=== PATIENT | female | born 1975 | race African-American/Black ===

== ENCOUNTER 2020-09-16 16:08 | Emergency (ER) | payer BC, SELFPAY ==
--- NOTE | ~2020-09-16 | XR_ITS ---
EXAMINATION: XR chest 2V 09/16/2020 17:07 INDICATION: Chest pain and left shoulder pain. Hypertension. PROCEDURE: 2 view chest COMPARISON: No prior studies for comparison. FINDINGS: The lungs are clear. The cardiomediastinal silhouette is within normal limits. There are no pleural effusions. There is no pneumothorax suspected. There are cholecystectomy clips in the up per abdomen. IMPRESSION: 1: NO ACUTE CARDIOPULMONARY DISEASE. Reviewed, dictated and finalized at location A. UNT MANAGEMENT ASSISTANT
--- NOTE | 2020-09-16 16:13 | ECG_ITS ---
Measurements Intervals [place] Rate: 92 P: 34 MI: 146 QRS: -17 QRSD: 94 T: 77 QT: 344 QTc: 427 Interpretive Statements SINUS RHYTHM WITH SINUS ARRHYTHMIA DELAYED PRECORDIAL R/S TRANSITION LEFT VENTRICULAR HYPERTROPHY WITH ST-T CHANGE BASELINE WANDER- I, II, III, AVF BORDERLINE ECG Electronically Signed On 09-16-2020 16:35:57 [employer]OM SHOP WORKER by Jaya Gaytan D.O.
[2020-09-16 16:29] LABS: Basophils Percent Auto 0.2 % (0.2-1.2); Eosinophils Absolute Auto 0.1 K/mm3 (0-0.3); Eosinophils Percent Auto 1.8 % (0-4.4); Hematocrit 39.1 % (37.0-47.0); Hemoglobin 13.3 g/dL (12.0-15.0); Lymphocytes Absolute Auto 2.54 K/mm3 (0.9-3.2); Lymphocytes Percent Auto 41.7 % (18.3-44.2); Mean Corpuscular Hemoglobin 30.5 pg (26-34); Mean Corpuscular Volume 89.7 fl (80-100); Mean Platelet Volume 11.2 fl (7.4-10.4); Monocytes Absolute Auto 0.5 K/mm3 (0.1-0.6); Monocytes Percent Auto 8.9 % (2.6-8.5); Neutrophils Absolute Auto 2.9 K/mm3 (1.3-6.7); Neutrophils Percent Auto 47.4 % (45.5-73.1); Platelet Count Result 275 k/mm3 (150-375); Red Blood Count 4.36 M/mm3 (4.2-5.4); Red Cell Distribution Width 12.9 % (11.5-14.5); White Blood Count 6.1 K/mm3 (4.5-10.0)
[2020-09-16 16:34] VITALS: BP 142/85; PULSE 85; RESP 26; TEMP 36.6; O2SAT 99
[2020-09-16 16:37] VITALS: PULSE 82
[2020-09-16] MEDS: ASPIRIN 81 MG CHEWABLE TABLET 324 MG PO (16:39)
[2020-09-16 16:40] LABS: Anion Gap 4 mmol/L (8-16); Blood Urea Nitrogen 13 mg/dL (7-17); Calcium 8.9 mg/dL (8.4-10.2); Carbon Dioxide 28 mmol/L (22-30); Chloride 105 mmol/L (98-107); Estimated CRCL calculation 90 ml/min; Estimated Glomerular Filt Rate > 60; Glucose 131 mg/dL (65-105); Potassium 3.4 mmol/L (3.4-5.0); Sodium 137 mmol/L (137-145)
[2020-09-16 16:52] LABS: Troponin I < 0.012 ng/mL (0.000-0.034)
[2020-09-16 17:05] LABS: INR 0.9; Prothrombin Time 12.5 Seconds (11.1-14.7)
[2020-09-16 17:07] LABS: Partial Thromboplastin Time 27.8 SECONDS (22.3-36.8)
--- NOTE | 2020-09-16 17:15 | ED.CHESTPAIN ---
HPI - Chest Pain General Chief Complaint: Chest Pain Stated Complaint: Chest Pain, Left Shoulder Pain Time Seen by Provider: 09/16/20 16:31 Source: patient Mode of arrival: ambulatory Limitations: no limitations History of Present Illness HPI narrative: 45-year-old female History of hypertension Got a Covid vaccine shot 2 weeks ago This morning she had some left arm soreness and a little chest discomfort before going to work lasted a few minutes and resolved spontaneously She works to [employer] in [employer] and had no problems while she was there After returning home and having a nap she decided to get checked out because she is due for her second shot in a week and want to make sure nothing was wrong She does not have a fever shortness of breath or cough, diaphoresis or palpitations, nausea or vomiting, urinary symptoms Related Data Home Medications Medication Instructions Recorded Confirmed amlodipine 5 mg PO 09/16/20 Allergies Allergy/AdvReac Type Severity Reaction Status Date / Time No Known Allergies Allergy Unverified 09/16/20 16:38 Review of Systems Review of Systems: All systems reviewed & are unremarkable except as noted in HPI and below Constitutional: Constitutional: Denies chills, Denies fatigue, Denies fever(s), Denies headache(s) and Denies weakness Eyes: Eyes: Reports no additional eye complaints and Denies change in vision ENT: Denies headache(s), Denies epistaxis, Denies nasal congestion and Denies sore throat Cardiovascular: Cardiovascular: Reports as per HPI, Reports chest pain, Denies leg edema, Denies palpitations and Denies dyspnea Respiratory: Respiratory: Denies cough, Denies dyspnea and Denies wheezing Gastrointestinal: Gastrointestinal: Denies abdominal pain, Denies diarrhea, Denies nausea and Denies vomiting Genitourinary: Genitourinary: Denies hematuria, Denies urinary frequency and Denies dysuria Musculoskeletal: Musculoskeletal: Reports myalgias, Denies deformity, Denies arthralgias, Denies joint swelling, Denies muscle weakness and Denies numbness Integumentary/Breasts: Skin/Breast: Denies rash and Denies wounds Neurologic: Denies headache(s), Denies focal weakness, Denies numbness and Denies weakness Psychiatric: Psychiatric: Reports no additional psychiatric complaints Endocrine: Endocrine: Denies fatigue and Denies palpitations Hematologic/Lymphatic: Hematologic/Lymphatic: Denies easy bleeding and Denies easy bruising Allergic/Immunologic: Allergic/Immunologic: Denies wheezing PMFSH Social History Social History Gender identity (if verbalized by the patient): Female Exam Const: General: no acute distress, well developed, alert and awake Nutritional Appearance: well nourished Orientation/consciousness: patient oriented x3 (alert) Limitations: no limitations HENMT: Head: normal to inspection, normocephalic and atraumatic Ears: external ears normal General nose exam: No nasal discharge present and no epistaxis Face and sinus: face symmetric Eyes: Conjunctivae: conjunctivae normal Sclera: sclerae normal EOM: EOMs intact bilaterally Neck: Neck: normal visual inspection, supple and no JVD Chest: Chest palpation & inspection: deferred and no tenderness Resp: Effort & Inspection: normal respiratory effort Auscultation: clear to auscultation bilaterally, no rales, no rhonchi, no wheezes and other (BS =) Cardio: Rate: regular rate Rhythm: regular rhythm Heart sounds: no gallops and no murmurs GI: Inspection: normal to inspection Back/Spine/Pelvis: Thoracic/Lumbar Spine: thoracic and lumbar spine normal to inspection Skin: General skin exam: normal color and no rashes or lesions noted Neuro: General: patient oriented x3 (alert) and moves all extremities Cranial nerves: Yes facial symmetry Speech: normal speech Extrem: General: normal to inspection and full ROM Other: No extremity tenderness Psych: Affect: normal affect Course Vital Signs
[2020-09-16 17:32] VITALS: BP 133/90; PULSE 84; RESP 18; O2SAT 100
[2020-09-16 18:49] VITALS: BP 159/93; PULSE 90; RESP 20; O2SAT 98
--- NOTE | 2020-09-16 19:46 | PC.NURSE ---
Assumed care of Pt. at this time. Report from MCKAY Meneses
[2020-09-16 19:49] LABS: Troponin I < 0.012 ng/mL (0.000-0.034)
[2020-09-16 20:47] VITALS: BP 148/85; PULSE 85; RESP 16; O2SAT 100
== END 2020-09-16 20:48 | disposition home or self-care (01) ==
PROVIDERS: Emergency Medicine; Emergency Provider Emergency Medicine
DX: R07.89 Other chest pain (principal); I51.7 Cardiomegaly
CPT/HCPCS: 36415; 71046; 80048; 84484; 85025; 85610; 85730; 93005; 99284; A9270

== ENCOUNTER 2023-02-22 16:25 | Emergency (ER) | payer BC, SELFPAY ==
[2023-02-22 16:33] VITALS: BP 147/79; PULSE 80; RESP 20; TEMP 36.5; O2SAT 100
--- NOTE | 2023-02-22 17:32 | ED.NEUROSD ---
HPI - Neuro Symptoms/Deficit General Chief Complaint: Neuro Symptoms/Deficit Stated Complaint: numbness in hands Time Seen by Provider: 02/22/23 16:58 Source: patient Mode of arrival: ambulatory Limitations: no limitations History of Present Illness HPI Narrative: Patient is a 47-year-old female who presents to the ED with report of paresthesias to her bilateral hands. Patient reports having intermittent paresthesias in her bilateral hands and fingers for the last several months. She states the symptoms occur randomly, often when she wakes up in the morning. She woke up this morning with paresthesias in both of her hands, but states the right hand has persisted mostly throughout the day, though is still intermittent. She describes the paresthesias as tingling and that her fingers feel tight. She does report having occasional pain in her elbow and fingers. She states she feels like she has to flick her hands to get rid of the paresthesias. Denies numbness. Denies any recent injury. Denies any weakness of her hands or dropping things. Denies weakness of arms or legs, headache, dizziness, lightheadedness, numbness elsewhere, blurry vision, slurred speech, dysarthria, dysphagia. Denies neck or back pain. Related Data Home Medications Medication Instructions Recorded Confirmed amlodipine 5 mg tablet 5 mg PO 09/16/20 Allergies Allergy/AdvReac Type Severity Reaction Status Date / Time No Known Allergies Allergy Unverified 09/16/20 16:38 Review of Systems Review of Systems: CONSTITUTIONAL: Denies fever, chills, or sweats. EYES: Denies visual changes. CARDIOVASCULAR: Denies chest pain. RESPIRATORY: Denies dyspnea. GASTROINTESTINAL: Denies abdominal pain, nausea, vomiting. MUSCULOSKELETAL: See HPI. NEUROLOGIC: See HPI. All systems reviewed & are unremarkable except as noted in HPI and below [facility] Past Medical History Medical History (Updated 02/23/23 @ 00:00 by Background Daemon) HTN (hypertension) Social History Social History Gender identity (if verbalized by the patient): Female Exam Narrative: GENERAL: Well appearing, obese with BMI of 33.6, non-toxic, in no acute distress. HEAD: Normocephalic, atraumatic. NECK: Supple. No adenopathy, no masses. RESPIRATORY: Airway patent, respirations nonlabored. Clear to auscultation bilaterally, no rales, rhonchi, wheezing. CARDIOVASCULAR: Regular rate and rhythm without murmurs, rubs, or gallops. Radial pulses 2+ and equal bilaterally. MUSCULOSKELETAL: Moves all extremities. Strength/ROM intact without gross deformities. Full range of motion of bilateral hands and fingers. Sharp touch and dull sensation intact to all fingers and hands. Good capillary refill to all fingers. No significant worsening of paresthesias with Tinel's or carpal compression testing. No significant tenderness to fingers, wrist, elbow. SKIN: Warm, dry, normal color. No rashes. NEURO: A&O X3. Speech clear. Cranial nerves II-XII grossly intact. Steady gait. No ataxic movements. Equal miller helper strength bilaterally. Strength 5 out of 5 in upper and lower extremities bilaterally. No focal neurologic deficits. PSYCHIATRIC: Appropriate mood and affect. Normal interaction. Course Vital Signs Vital signs: Vital Signs Temperature 97.7 F 02/22/23 16:33 Pulse Rate 80 02/22/23 16:33 Respiratory Rate 20 02/22/23 16:33 Blood Pressure 147/79 H 02/22/23 16:33 Pulse Oximetry 100 02/22/23 16:33 Oxygen Delivery Room Air 02/22/23 16:33 Temperature 97.7 F 02/22/23 16:33 Pulse Rate 80 02/22/23 16:33 Respiratory Rate 20 02/22/23 16:33 Blood Pressure 147/79 H 02/22/23 16:33 Pulse Oximetry 100 02/22/23 16:33 Oxygen Delivery Room Air 02/22/23 16:33 MDM - Neuro Symptoms/Deficit MDM Narrative Medical decision making narrative: Patient presented to ED with several month history of tingling paresthesias to bilateral hands. Vital stable upon arrival. Exam un
== END 2023-02-22 17:47 | disposition home or self-care (01) ==
PROVIDERS: Emergency Provider Physician Assistant; PCP Family Medicine
DX: R20.2 Paresthesia of skin (principal); I10 Essential (primary) hypertension
CPT/HCPCS: 99283

== ENCOUNTER 2023-09-28 09:12 | Outpatient (CLI) | payer BC, SELFPAY ==
--- NOTE | ~2023-09-28 | MM_ITS ---
EXAMINATION: MM screening kait BI w kimo HISTORY: Screening mammogram TECHNIQUE: Craniocaudal and mediolateral oblique 3-D tomosynthesis images were obtained and synthetic 2-D images were generated. CAD analysis was submitted and interpreted. COMPARISON: No prior mammogram is available for comparison at this institution. BREAST PARENCHYMAL COMPOSITION: There are scattered areas of fibroglandular density. FINDINGS: No suspicious mass, calcification, or architectural distortion are identified in either richi ast to suggest malignancy. IMPRESSION: 1. No mammographic evidence of malignancy. 2. Recommend routine screening mammography in one year. BI-RADS Category 1: Negative Reviewed, dictated and finalized at location A. EMS MGR
== END 2023-09-28 09:13 | disposition home or self-care (01) ==
PROVIDERS: PCP Family Medicine; Visit Provider Obstetrics & Gynecology
DX: Z12.31 Encounter for screening mammogram for malignant neoplasm of breast (principal)
CPT/HCPCS: 77063; 77067

== ENCOUNTER 2023-12-28 14:03 | Emergency (ER) | payer BC, SELFPAY ==
[2023-12-28] VITALS (18 sets, daily range): BP systolic 131–145; BP diastolic 85–94; PULSE 73–100; RESP 13–27; TEMP 36.3–37.1; O2SAT 96–100
--- NOTE | ~2023-12-28 | US_ITS ---
EXAMINATION: US pelvic limited DATE: 12/28/2023 18:08 INDICATION: Ovarian lesion. TECHNIQUE: Multiple transabdominal and endovaginal sonographic images of the pelvis were obtained. COMPARISON: CT abdomen and pelvis, same date. FINDINGS: Uterus: Surgically absent. Right Ovary: 2.1 x 1.1 x 1.5 cm. Vascular flow is present. 8 mm dominant follicle or simple cyst. Left Ovary: 5.4 x 1.7 x 2.5 cm. Vascular flow is present. Smoothly marginated, 2.1 cm solid ovarian l esion with moderate to strong color Doppler flow. There is no free fluid in the pelvis. IMPRESSION: 2.1 cm solid left ovarian lesion (O-RADS 4), recommend pelvic MRI and referral to gynecology/gynecolo gy-oncology. Reviewed, dictated and finalized at location K. IMPRESSION: 2.1 cm solid left ovarian lesion (O-RADS 4), recommend pelvic MRI and referral to gynecology/gynecology-oncology.
--- NOTE | ~2023-12-28 | CT_ITS ---
EXAMINATION: CT abdomen pelvis wo con DATE: 12/28/2023 16:07 INDICATION: left flank pain TECHNIQUE: Computed tomography (CT) of the abdomen and pelvis was performed without intravenous contr ast. Automated exposure control and iterative reconstruction technique were employed. The dose-length product was 853.46 mGy-cm. COMPARISON: None. FINDINGS: Lower thorax: Minimal dependent atelectasis on the left. Liver: Normal. Biliary/Gallbladder: Gallbladder is absent. No bile duct dilation. Pancreas: No mass or duct dilation. Spleen: Normal. Adrenals: Subcentimeter left adrenal hypodensity, likely adenoma. Kidneys: No suspicious mass, obstructing stone, or hydronephrosis. GI tract: No small or large bowel dilation. Normal appendix. Diverticulosis without diverticulitis. Mesentery/Peritoneum: No ascites, mass, or free air. Retroperitoneum: No mass. Pelvis: Normal urinary bladder. Indeterminate density 2.8 cm left ovarian lesion. Simple right ovaria n cyst. Small volume free pelvic fluid. Soft Tissues: Soft tissues and body wall unremarkable. Bones: No acute osseous finding. 4.6 cm cystic lesion in the proximal left femur, without aggressive features. An osseous tract approach the lesion possibly from prior hardware or biopsy. Bilateral sac roiliitis. IMPRESSION: Indeterminate 2.8 cm left ovarian lesion, recommend pelvic ultrasound, now if current symptoms refer to the pelvis, otherwise timely outpatient evaluation would be sufficient. No twisting of the vascula r pedicle to suggest ovarian torsion in either ovary. Nonaggressive appearing cystic proximal femoral lesion with a likely hardware or biopsy tract, correl ate with prior history. No CT evidence of nephrolithiasis or obstructive uropathy. Reviewed, dictated and finalized at location K. IMPRESSION: Indeterminate 2.8 cm left ovarian lesion, recommend pelvic ultrasound, now if c urrent symptoms refer to the pelvis, otherwise timely outpatient evaluation wou ld be sufficient. No twisting of the vascular pedicle to suggest ovarian torsio n in either ovary. Nonaggressive appearing cystic proximal femoral lesion with a likely hardware o r biopsy tract, correlate with prior history. No CT evidence of nephrolithiasis or obstructive uropathy.
[2023-12-28 16:24] LABS: Basophils Percent Auto 0.1 % (0.2-1.2); Hematocrit 41.7 % (37.0-47.0); Hemoglobin 14.2 g/dL (12.0-15.0); Immature Granulocyte Absolute 0.01 K/mm3 (0.00-0.031); Immature Granulocyte Percent A 0.1 % (0-0.5); Lymphocytes Absolute Auto 1.57 K/mm3 (0.9-3.2); Lymphocytes Percent Auto 22.9 % (18.3-44.2); Mean Corpuscular HGB Conc 34.1 g/dl (32-36); Mean Corpuscular Hemoglobin 30.6 pg (26-34); Mean Corpuscular Volume 89.9 fl (80-100); Mean Platelet Volume 10.9 fl (7.4-10.4); Monocytes Absolute Auto 0.3 K/mm3 (0.1-0.6); Monocytes Percent Auto 3.9 % (2.6-8.5); Platelet Count Result 259 k/mm3 (150-375); Red Blood Count 4.64 M/mm3 (4.2-5.4); Red Cell Distribution Width 12.8 % (11.5-14.5); White Blood Count 6.9 K/mm3 (4.5-10.0)
[2023-12-28 16:29] LABS: Appearance Urine Clear (Clear); Bilirubin Urine Negative (Negative); Blood Urine Negative (Negative); Color Urine Yellow (Yellow); Glucose Urine UA Negative (Negative); Ketones Urine Negative (Negative); Leukocyte Esterase Ur Negative LEU/UL (Negative); Nitrate Urine Negative (Negative); Protein Urine Negative (Negative); Specific Grav Ur 1.013 (1.001-1.035); pH Urine 7.5 (5.0-9.0)
[2023-12-28 16:33] LABS: Add Urine Microscopic? YES
[2023-12-28 16:36] LABS: Alanine Aminotransferase 21 U/L (6-35); Albumin Level 4.6 g/dL (3.5-5.1); Alkaline Phosphatase 59 U/L (38-126); Anion Gap 8 mmol/L (4-12); Aspartate Amino Transferase 23 U/L (14-36); Bilirubin,Total 0.5 mg/dL (0.2-1.3); Blood Urea Nitrogen 8 mg/dL (7-17); Calcium 9.3 mg/dL (8.4-10.2); Carbon Dioxide 26 mmol/L (22-30); Chloride 103 mmol/L (98-107); Estimated CRCL calculation 113 ml/min; Estimated Glomerular Filt Rate > 60; Glucose 125 mg/dL (65-110); Lipase 24 U/L (23-300); Potassium 3.4 mmol/L (3.4-5.0); Sodium 137 mmol/L (137-145)
--- NOTE | 2023-12-28 18:01 | ED.GENADULT ---
HPI - General Adult General Chief complaint: Back Pain/Injury Stated complaint: L side pain Time Seen by Provider: 12/28/23 15:50 History of Present Illness HPI narrative: patient is a 48-year-old female who presents emergency department with chief complaint of left flank pain patient reports that started having pain after urinating reports that the pain began around 1 patient states she took some Tylenol but reports that the pain has been slowly getting better. The patient reports some slight nausea denies fever denies dysuria. The patient reports no prior history of kidney stones reports prior history of a hysterectomy but does report that she believes that she has her ovaries. Related Data Home Medications Medication Instructions Recorded Confirmed amlodipine 5 mg tablet 5 mg PO 09/16/20 06/24/23 Allergies Allergy/AdvReac Type Severity Reaction Status Date / Time No Known Allergies Allergy Unverified 06/24/23 10:56 Review of Systems Review of Systems: A 10 system review of systems was completed on the patient and is negative except for what is stated in the HPI. Nursing and ancillary documentation was reviewed. PMFSH Past Medical History Medical History HTN (hypertension) Surgical History Surgical History H/O: hysterectomy 2018 Family History Family History Other Cervical cancer Diabetes mellitus Hypertension Malignant neoplasm of prostate Social History Social History Smoking status: Current some day smoker Tobacco type: e-cigarettes/vaping Alcohol intake: current Substance use: current Substance use type: marijuana Lack of Transportation: No Lack of Food: Never True Current Housing: I Have Housing Concerned About Future Housing: No Difficulty Paying Gas/Electric Bills: No Difficulty Paying for Meds: No Currently Unemployed: No Education: Trade/Vocational Certificate Difficulty w/ Childcare or Family Care: No Living arrangements: with family Occupation/Education: occupation Gender identity (if verbalized by the patient): Female Sexual Orientation (if Verbalized by the Patient): Straight or Heterosexual Exam Narrative: GENERAL: Well-appearing, well-nourished, and in no acute distress. HEAD: Normocephalic, atraumatic. EYES: PERRLA and EOMI. ENT: Nares clear, no rhinorrhea or epistaxis. Mucous membranes moist. NECK: Supple. CHEST: Clear to auscultation. No respiratory distress. HEART: Regular rate and rhythm. No murmur heard. Normal peripheral pulses. ABDOMEN: Soft, nontender, nondistended, normal active bowel sounds. EXTREMITIES: Normal range of motion. No edema. SKIN: Warm, dry, no rash. NEURO: No focal deficits. Alert and oriented x3. PSYCH: Normal mood and affect. Course Vital Signs Vital signs: Vital Signs Temperature 36.3 C L 12/28/23 14:08 Pulse Rate 100 12/28/23 14:08 Respiratory Rate 20 12/28/23 14:08 Blood Pressure 143/91 H 12/28/23 14:08 Pulse Oximetry 100 12/28/23 14:08 Temperature 37.1 C 12/28/23 15:43 Pulse Rate 81 12/28/23 18:04 Respiratory Rate 15 12/28/23 18:04 Blood Pressure 142/85 H 12/28/23 18:04 Pulse Oximetry 99 12/28/23 18:04 Oxygen Delivery Room Air 12/28/23 15:43 Medical Decision Making MDM Narrative Medical decision making narrative: differential diagnosis includes ureterolithiasis, UTI, pyelonephritis, ovarian pathology, ovarian torsion, diverticulitis, colitis laboratory studies were obtained on the patient which showed a normal CBC CMP was within normal limits urinalysis showed no evidence UTI ultrasound of the pelvis showed 2.1 cm solid left ovarian lesion (O-RADS 4), recommend pelvic MRI and refe
[2023-12-28] MEDS: KETOROLAC 30 MG/ML VIAL (*BKC) IM (18:20)
== END 2023-12-28 19:43 | disposition home or self-care (01) ==
PROVIDERS: Emergency Provider Emergency Medicine; PCP Family Medicine
DX: N83.8 Other noninflammatory disorders of ovary, fallopian tube and broad ligament (principal); R10.9 Unspecified abdominal pain; I10 Essential (primary) hypertension; F17.290 Nicotine dependence, other tobacco product, uncomplicated
CPT/HCPCS: 36415; 74176; 76857; 80053; 81001; 83690; 85025; 96372; 99284; J1885

== ENCOUNTER 2024-02-29 11:48 | Outpatient (CLI) | payer BC, SELFPAY ==
--- NOTE | ~2024-02-29 | US_ITS ---
US pelvic complete w TV Ordering provider: Alexandar Tate MD History: . N83.292 - Other ovarian cyst, left side . Comparison: None. Technique: Transabdominal and endovaginal ultrasound of the pelvis (Doppler ultrasound interrogation techniques used as needed for this exam.) FINDINGS: UTERUS surgically removed.. CUL DE SAC: No free fluid. RIGHT OVARY: Not visualized. LEFT OVARY: Not visualized. ADNEXA: Small cystic area seen in the left adnexa which may be ovarian. Follow-up advised. IMPRESSION: Small cystic area seen in the left adnexa which may be ovarian. Follow-up advised Reviewed, dictated and finalized at location A. IMPRESSION: Small cystic area seen in the left adnexa which may be ovarian. Follow-up advis ed
== END 2024-02-29 11:49 ==
PROVIDERS: PCP Family Medicine; Visit Provider Obstetrics & Gynecology
DX: N83.292 Other ovarian cyst, left side (principal)
CPT/HCPCS: 76830; 76856

== ENCOUNTER 2025-05-16 11:03 | Outpatient (CLI) | payer BC, SELFPAY ==
--- NOTE | ~2025-05-16 | MM_ITS ---
EXAMINATION: MM screening kait BI w kimo HISTORY: Screening TECHNIQUE: Craniocaudal and mediolateral oblique 3-D tomosynthesis images were obtained and synthetic 2-D images were generated. CAD analysis was submitted and interpreted. COMPARISON: 09/28/2023 BREAST PARENCHYMAL COMPOSITION: Not Dense: The breasts are almost entirely fatty. FINDINGS: There is no evidence of suspicious mass, calcification, or architectural distortion to suggest malignancy in either breast. There has been no suspicious interval change. IMPRESSION: 1. No mammographic evidence of malignancy. 2. Recommend routine screening mammography in one year. BI-RADS Category 1: Negative Reviewed, dictated and finalized at location B.
--- OUTSIDE RECORDS SUMMARY | 2025-05-16 11:57 | XMS_ITS | Clinical Summary ---
Author Organization [facility] Address [address] [place] [address] Care Team Providers Care Ticket Printer Name Role Phone Gaurav Navarrete APRN-[facility] Primary Care P scottder Source Comments [facility],non-owned Affiliates and Associated Physician Practices is amultiple site organization consisting of ambulatory clinics and hospital sitesin [place], [place], [place] and [place]. This disclosure is being madepursuant to the Care Everywhere program and may not contain all information available regarding this patient. Last updated 18.[facility] Allergies No known active allergies Medications * Be aware that medications may not be up to date on this document. Alwaysverify current medications with the patient. ibuprofen (MOTRIN) 800 MG tablet TK 1 T PO Q 6 H FOR CRAMPS 1 04/29/2018 Active calcium carbonate-vitami n D 600-400 MG-UNIT tablet TK 1 C PO BID 11 04/27/2018 Active acyclovir (ZOVIRAX) 800 MG tablet TK 1 T PO QD 4 05/23/2018 Active lisinopril-hydro CHLOROthiazide (PRINZIDE; ZESTORETIC) 20-12.5 MG tablet Take 1 tablet by mouth once daily 6 09/21/2018 Active amLODIPine (Norvasc) 10 MG tablet 12/27/2023 Active vitamin D, ergocalciferol, (Drisdol) 1.25 MG (48785 UT) capsule 10/04/2023 Active gabapentin (Neurontin) 300 MG capsule 12/31/2023 Active losartan (Cozaar) 25 MG tablet 12/27/2023 Active Active Problems Problem Noted Date Diagnosed Date 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 Family History Medical History Relation Name Comments Cancer - Prostate Father Cancer - Other Mother cervix Relation Name Status Comments Father Mother Social History Tobacco Use Types Packs/Day Years Used Date Smoking Tobacco: Never Smokeless Tobacco: Never Tobacco Cessation:Counseling Given: Not Answered Alcohol Use Standard Drinks/Week Comments Yes 0 (1 standard drink = 0.6 oz pur e alcohol) occ Comments No Sex and Gender Information Value Date Recorded Sex Assigned at Not on file Legal Sex Female 9:12 AM CDT Gender Identity Not on file Sexual Orientation Not on file Last Filed Vital Signs Vital Sign Reading Time Taken Comments Blood Pressure 138/92 02/08/2024 2:12 PM CDT Pulse 62 03/08/2019 11:50 AM CDT Temperature 36.9 C (98.5 F) 02/23/2019 1:08 PM CDT Respiratory Rate 17 03/08/2019 11:50 AM CDT Oxygen Saturation 96% 03/08/2019 11:50 AM CDT Inhaled Oxygen Concentration - - Weight 91.4 kg (201 lb 6.4 oz) 02/08/2024 2:12 P M CDT Height 167.6 cm (5' 6) 02/08/2024 2:12 PM CDT Body Mass Index 32.51 02/08/2024 2:12 PM CDT Plan of Treatment Health Maintenance Due Date Last Done Comments COLOGUARD (AGES 45-75) - COLON CA SCREENING 1973 COLON MONITORING 1973 COLONOSCOPY - COLON CA SCREENING 1973 CT COLONOGRAPHY - COLON CA SCREENING 1973 Colorectal Cancer Screening 1973 FIT - COLON CA SCREENING 1973 FLEX SIG - COLON CA SCREENING 1973 MAMMOGRAM 1973 HIV SCREENING 1988 HEPATITIS C SCREENING 03/20/1991 DTAP/TDAP/TD VACCINES (1 - Tdap) 1992 HEPATITIS B VACCINE (1 of 3 - 19+ 3-dose series) 1992 PAP with HPV 2003 PNEUMOCOCCAL VACCINE 50+ (1 of 1 - PCV) 2023 ZOSTER VACCINE (1 of 2) 2023 SCREENING FOR DIABETES 01/13/2024 9, 08/25/2018, 08/11/2018, Additional history exists DEPRESSION SCREENING 08/16/2024 COVID-19 VACCINE ( season) 2025 10/07/2021, 09/20/2020, 08/30/2020 INFLUENZA VACCINE (#1) 2025 06/05/2015, 2007 LIPID TESTING 08/05/2027 08/05/2022 HIB VACCINE Aged Out No longer eligi ble based on patient's age to complete this topic HPV VACCINE Aged Out No longer eligi ble based on patient's age to complete this topic MENINGOCOCCAL (Group B) VACCINE SHARED DECISION-MAKING Aged Out No longer eligible based on patient's age to complete this topic MENINGOCOCCAL GROUPS A/C/Y/W VACCINE Aged Out No longer eligible based on patient's age to complete this topic Procedures Procedure Name Priority Date/Time Associated Diagnosis Comments COMPREHENSIVE METABOLIC PANEL Routine 09/08/2018 10:43 AM [facility] Gestational trophoblastic neoplasm from Last 3 Months or Most Recently Relevant to Health Maintenance Results * COMPREHENSIVE METABOLIC PANEL (09/08/2018 10:43 AM [facility]) Glucose 102 74 - 106 mg/dL 09/08/2018 11:[address] [facility] Sodium 138 136 - 145 mmol/L 09/08/2018 11:[address] [facility] Potassium 3.5 3.5 - 5.1 mmol/L 09/08/2018 11:[address] [facility] Chloride 105 98 - 107 mmol/L 09/08/2018 11:[address] [facility] CO2 25 22 - 31 mmol/L 09/08/2018 11:[address] [facility] Calcium 8.6 8.5 - 10.1 mg/dL 09/08/2018 11:[address] [facility] Anion Gap 8 8 - 16 mmol/L 09/08/2018 11:[address] [facility] BUN 9 7 - 21 mg/dL 09/08/2018 11:32 AM [facility] Creatinine 0.85 0.50 - 1.30 mg/dL 09/08/2018 11:[address] [facility] Alkaline Phosphatase 58 38 - 126 U/L 09/08/2018 11:32 AM [facility] ALT 35 13 - 61 U/L 09/08/2018 11:32 AM [facility] AST 14 5 - 40 U/L 09/08/2018 11:[address] [facility] Protein Total 7.5 6.4 - 8.2 gm/dL 09/08/2018 11:32 AM [facility] Albumin 3.6 3.4 - 5.0 gm/dL 09/08/2018 11:[address] [facility] Bilirubin Total 0.4 0.2 - 1.0 mg/dL 09/08/2018 11:[address] [facility] eGFR by MDRD >60 >60 mL/min/1.7 3m2 09/08/2018 11:32 AM [facility] eGFR by MDRD >60 >60 mL/min/1.7 3m2 09/08/2018 11:[address] [facility] Blood BLOOD SPECIMEN / Unknown Venipuncture / Unknown 09/08/2018 10:43 AM [facility] 09/08/2018 10:58 AM [facility] Paty Salmon MD LAB - CHEMISTRY ORDERABLES Final Result Performing Organization Address [facility]/State/[facility] de Phone Number [facility] [address] [place] [address] from Last 3 Months or Most Recently Relevant to Health Maintenance Insurance Care Teams Ticket Printer Relationship Specialty Start Date End Date Gaurav Navarrete, CORPORATE MEETING PLANNER-USER EXPERIENCE ANALYST [address] [place] [address] PCP - General Nurse Practitioner Adult Health 01/13/24
--- OUTSIDE RECORDS SUMMARY | 2025-05-16 11:57 | XMS_ITS | Encounter Summary ---
Author Organization [facility] Address [address] [place] [address] Care Team Providers Care Camp Dishwasher Name Role Phone Remy Evans MD Primary Care Provider [phone] Gaurav Navarrete [facility] Primary Care P rovider Encounter Details Date Type Department Care Team (Late st Contact Info) Description 02/22/2019 Telephone [facility] [address] [place] [address] Soham Bliss Social History Tobacco Use Types Packs/Day Years Used Date Smoking Tobacco: Never Smokeless Tobacco: Never Alcohol Use Standard Drinks/Week Comments Yes 0 (1 standard drink = 0.6 oz pur e alcohol) occ Comments No Sex and Gender Information Value Date Recorded Sex Assigned at Not on file Legal Sex Female 9:12 AM CDT Gender Identity Not on file Sexual Orientation Not on file documented as of this encounter Plan of Treatment Not on file documented as of this encounter Visit Diagnoses Not on filedocumented in this encounter Care Teams Camp Dishwasher Relationship Specialty Start Date End Date Remy Evans MD [address] [facility] [address] [place] [address] PCP - General 10/10/18 5/29/24 Gaurav Navarrete, REBAR FABRICATOR-DIE STAMPING PRESS OPERATOR [address] [place] [phone] PCP - General Nurse Practitioner Adult Health 01/13/24 documented as of this encounter
== END 2025-05-16 11:04 | disposition home or self-care (01) ==
LOC: ANHFOHIMG 11:14
PROVIDERS: PCP Family Medicine; Visit Provider Obstetrics & Gynecology
DX: Z12.31 Encounter for screening mammogram for malignant neoplasm of breast (principal)
CPT/HCPCS: 77063; 77067

== ENCOUNTER 2025-06-21 00:28 | Day surgery (SDC) | payer BC, SELFPAY ==
[2025-06-07 13:50] VITALS: BMI 33.6
[2025-06-21 09:07] VITALS: BP 135/85; PULSE 70; RESP 16; TEMP 35.9; O2SAT 99
[2025-06-21] MEDS: LACTATED RINGERS 1,000 ML 150 ML IV CONT (09:12)
--- NOTE | 2025-06-21 09:15 | WPDANESEPPF ---
Anes - Initial Pre Proc Eval Procedure: Operation Date: 06/21/25 10:30 Proposed Procedures p Screening Colonoscopy - Zuhair Alejo MD Date/Time: 06/21/25 09:15 Surgeon: Zuhair Alejo MD Pre Op Diagnosis: Screening Patient Data Age: 50 Gender: F Height: 1.68 m Weight: 91.3 kg Last Vital Signs Temp 35.9 C L 06/21/25 09:07 Pulse 70 06/21/25 09:07 Resp 16 06/21/25 09:07 BP 135/85 06/21/25 09:07 Pulse Ox 99 06/21/25 09:07 O2 Del Method Room Air 06/21/25 09:07 Allergies Allergy/AdvReac Type Severity Reaction Status Date / Time No Known Allergies Allergy Verified 06/21/25 09:06 Home Medications ?Medication ?Instructions ?Recorded ?Confirmed ?Type amlodipine 10 mg tablet mg PO DAILY 02/16/24 02/16/24 History losartan 25 mg tablet mg PO DAILY 02/16/24 02/16/24 History Patient hx anesthesia problems: none Family hx anesthesia problems: none Results Review: All pre-operative results and documents have been reviewed as part of the pre-operative evaluation. [facility] Past Medical History Medical History HTN (hypertension) Surgical History Surgical History H/O: hysterectomy 2018 Family History Family History Other Cervical cancer Diabetes mellitus Hypertension Malignant neoplasm of prostate Social History Social History Smoking status: Never smoker Tobacco type: e-cigarettes/vaping Alcohol intake: current Drinks per week: 1 Alcohol use details: occ. Substance use: never Substance use type: does not use Lack of Transportation: No Lack of Food: Never True Current Housing: I Have Housing Concerned About Future Housing: No Difficulty Paying Gas/Electric Bills: No Difficulty Paying for Meds: No Currently Unemployed: No Education: Trade/Vocational Certificate Difficulty w/ Childcare or Family Care: No Living arrangements: with family Occupation/Education: occupation Gender identity (if verbalized by the patient): Female Sexual Orientation (if Verbalized by the Patient): Straight or Heterosexual Spiritual care concerns: No Anes - Eval Final PreProcedure Day of Procedure 06/21/25 09:15 Patient weight: obese Heart: regular rate and rhythm Lungs: clear to auscultation Airway: Mallampati scale class II Neurological: alert and oriented Last oral intake: >/= 8 hours ASA classification: III Emergent: no Anesthetic plan: proceed Anesthesia type and monitoring: general GIVS and standard monitoring Results Review: All pre-operative results and documents have been reviewed as part of the pre-operative evaluation. Informed Consent: The patient's anesthetic plan and its attendant risks and benefits were discussed with the patient/family/POA. Questions were solicited and answers provided to the satisfaction of the patient/family/POA.
--- NOTE | 2025-06-21 09:28 | PM.HPGS ---
History of Present Illness History of Present Illness Consent: Risks, benefits, and alternatives have been discussed and questions answered. Patient agrees to proceed with procedure. Chief complaint: Screening Narrative: Darcie Ruvalcaba is a 50 year old female here for screening colonoscopy Review of Systems Review of Systems: All systems reviewed & are unremarkable except as noted in HPI and below PMFSH Past Medical History Medical History (Updated 06/21/25 @ 09:29 by Zuhair Alejo MD) Colon cancer screening HTN (hypertension) Surgical History Surgical History H/O: hysterectomy 2018 Family History Family History Other Cervical cancer Diabetes mellitus Hypertension Malignant neoplasm of prostate Social History Social History Smoking status: Never smoker Tobacco type: e-cigarettes/vaping Alcohol intake: current Drinks per week: 1 Alcohol use details: occ. Substance use: never Substance use type: does not use Lack of Transportation: No Lack of Food: Never True Current Housing: I Have Housing Concerned About Future Housing: No Difficulty Paying Gas/Electric Bills: No Difficulty Paying for Meds: No Currently Unemployed: No Education: Trade/Vocational Certificate Difficulty w/ Childcare or Family Care: No Living arrangements: with family Occupation/Education: occupation Gender identity (if verbalized by the patient): Female Sexual Orientation (if Verbalized by the Patient): Straight or Heterosexual Spiritual care concerns: No Meds Home Medications and Allergies Home Medications ?Medication ?Instructions ?Recorded ?Confirmed ?Type amlodipine 10 mg tablet mg PO DAILY 02/16/24 02/16/24 History losartan 25 mg tablet mg PO DAILY 02/16/24 02/16/24 History Allergies Allergy/AdvReac Type Severity Reaction Status Date / Time No Known Allergies Allergy Verified 06/21/25 09:06 Vital Signs Vital Signs - 24 hr 06/21/25 09:07 Temperature 96.7 F L Pulse Rate 70 Respiratory Rate 16 Blood Pressure 135/85 Pulse Oximetry 99 Oxygen Delivery Room Air Exam Const: General: comfortable and no acute distress HENMT: Face/Nose/Sinus: Normal nares present Eyes: General: appearance normal, both eyes and all related structures Resp: Auscultation: clear to auscultation bilaterally Cardio: Rate: regular rate Rhythm: regular rhythm GI: Inspection: non-distended GI Palp: Yes Soft to palpation Skin: General skin exam: normal color Extrem: General: normal to inspection Psych: Mental Status: mental status grossly normal Assessment and Plan Assessment and plan (1) Colon cancer screening: Code(s): Z12.11 - Encounter for screening for malignant neoplasm of colon Status: Acute Assessment and Plan: colonoscopy
[2025-06-21 09:42] VITALS: BP 110/74; PULSE 56; RESP 14; O2SAT 99
[2025-06-21 09:52] VITALS: BP 112/74; PULSE 60; RESP 15; O2SAT 100
[2025-06-21 10:02] VITALS: BP 122/70; PULSE 58; RESP 15; O2SAT 100
--- OUTSIDE RECORDS SUMMARY | 2025-06-21 15:58 | XMS_ITS | Encounter Summary ---
Author Organization [facility] Address [address] [place] [address] Care Team Providers Care Vp Marketing Services And Skin Name Role Phone Remy Evans MD Primary Care Provider [phone] Gaurav Navarrete [facility] Primary Care P rovider Encounter Details Date Type Department Care Team (Late st Contact Info) Description 02/22/2019 Telephone [facility] [address] [place] [address] Soham Bliss Social History Tobacco Use Types [...] on filedocumented in this encounter Care Teams Vp Marketing Services And Skin Relationship Specialty Start Date End Date Remy Evans MD [address] [facility] [address] [place] [address] PCP - General 10/10/18 5/29/24 Gaurav Navarrete, INSTALLATION COORDINATOR-MEDICAL RECORDS ASSISTANT [address] [place] [phone] PCP - General Nurse Practitioner Adult Health 01/13/24 documented as of this encounter
--- OUTSIDE RECORDS SUMMARY | 2025-06-21 15:58 | XMS_ITS | Clinical Summary ---
Author Organization [facility] Address [address] [place] [address] Care Team Providers Care Sales Manager Prearranged Funerals Name Role Phone Gaurav Navarrete APRN-[facility] Primary Care P scottder Source Comments [facility],non-owned Affiliates and Associated Physician Practices is amultiple site organization consisting of ambulatory clinics and hospital sitesin [place], [place], [place] and [place]. This disclosure is being madepursuant to the Care Everywhere program and may not contain all information available regarding this patient. Last updated 18.[facility] Allergies No known active allergies Medications * [...] Active vitamin D, ergocalciferol, (Drisdol) 1.25 MG (26898 UT) capsule 10/04/2023 Active gabapentin (Neurontin) 300 [...] FLEX SIG - COLON CA SCREENING 1973 LIPID TESTING 1973 MAMMOGRAM 1973 HIV SCREENING 1988 HEPATITIS [...] 08/30/2020 INFLUENZA VACCINE (#1) 2025 06/05/2015, 2007 HIB VACCINE Aged Out No longer eligi [...] COMPREHENSIVE METABOLIC PANEL Routine 09/08/2018 10:43 AM [facility] Gestational trophoblastic neoplasm from Last 3 Months or Most Recently Relevant to Health Maintenance Results * COMPREHENSIVE METABOLIC PANEL (09/08/2018 10:43 AM [facility]) Glucose 102 74 - 106 mg/dL 09/08/2018 11:32 AM [facility] Sodium 138 136 - 145 mmol/L 09/08/2018 11:32 AM [facility] Potassium 3.5 3.5 - 5.1 mmol/L 09/08/2018 11:32 AM [facility] Chloride 105 98 - 107 mmol/L 09/08/2018 11:32 AM [facility] CO2 25 22 - 31 mmol/L 09/08/2018 11:32 AM [facility] Calcium 8.6 8.5 - 10.1 mg/dL 09/08/2018 11:32 AM [facility] Anion Gap 8 8 - 16 mmol/L 09/08/2018 11:32 AM [facility] BUN 9 7 - 21 mg/dL 09/08/2018 11:32 AM PROCUREMENT TECHNICIAN [facility] Creatinine 0.85 0.50 - 1.30 mg/dL 09/08/2018 11:32 AM PROCUREMENT TECHNICIAN [facility] Alkaline Phosphatase 58 38 - 126 U/L 09/08/2018 11:32 AM PROCUREMENT TECHNICIAN [facility] ALT 35 13 - 61 U/L 09/08/2018 11:32 AM PROCUREMENT TECHNICIAN [facility] AST 14 5 - 40 U/L 09/08/2018 11:32 AM PROCUREMENT TECHNICIAN [facility] Protein Total 7.5 6.4 - 8.2 gm/dL 09/08/2018 11:32 AM PROCUREMENT TECHNICIAN [facility] Albumin 3.6 3.4 - 5.0 gm/dL 09/08/2018 11:32 AM PROCUREMENT TECHNICIAN [facility] Bilirubin Total 0.4 0.2 - 1.0 mg/dL 09/08/2018 11:32 AM PROCUREMENT TECHNICIAN [facility] eGFR by MDRD >60 >60 mL/min/1.7 3m2 09/08/2018 11:32 AM PROCUREMENT TECHNICIAN [facility] eGFR by MDRD >60 >60 mL/min/1.7 3m2 09/08/2018 11:32 AM [facility] Blood BLOOD SPECIMEN / Unknown Venipuncture / Unknown 09/08/2018 10:43 AM PROCUREMENT TECHNICIAN 09/08/2018 10:58 AM PROCUREMENT TECHNICIAN Paty Salmon MD LAB - CHEMISTRY ORDERABLES Final Result Performing Organization Address [facility]/State/[facility] Co de Phone Number [facility] [address] [place], [place] [id number] from Last 3 Months or Most Recently Relevant to Health Maintenance Insurance Care Teams Sales Manager Prearranged Funerals Relationship Specialty Start Date End Date Gaurav Navarrete, BUSINESS SCHOOL DEAN-CATALYST OPERATOR [address] [place] [address] PCP - General Nurse Practitioner Adult Health 01/13/24
== END 2025-06-21 10:10 | disposition home or self-care (01) ==
PROVIDERS: PCP Family Medicine; Referring Provider Nurse Practitioner Family; Visit Provider Internal Medicine Gastroenterology
PROC: 0DJD8ZZ Inspection of Lower Intestinal Tract, Via Natural or Artificial Opening Endoscopic (ICD-10-PCS; CPT 45378; principal; 2025-06-21 10:30)
DX: Z12.11 Encounter for screening for malignant neoplasm of colon (principal); K57.30 Diverticulosis of large intestine without perforation or abscess without bleeding; I10 Essential (primary) hypertension; F17.290 Nicotine dependence, other tobacco product, uncomplicated; E66.9 Obesity, unspecified; Z68.32 Body mass index [BMI] 32.0-32.9, adult; Z98.890 Other specified postprocedural states; Z80.49 Family history of malignant neoplasm of other genital organs; Z80.42 Family history of malignant neoplasm of prostate
CPT/HCPCS: 45378; J2003; J2704; J7120